=== PATIENT | female | born 1975 | race Caucasian/White ===

== ENCOUNTER 2017-05-31 13:30 | Emergency (ER) | payer SELFPAY ==
[2017-05-31 13:35] VITALS: BP 135/91; BMI 41.5
--- NOTE | 2017-05-31 14:13 | DR.GENAD ---
HPI - PCP Primary Care Physician: isaias SÁNCHEZ Comment HPI Comment: Cold symptoms x 4 days. Consists of cough which is both dry and productive. She has fever but no chills. She has body aches. Past hx. of Asthma managed with Albuterol (out of meds. for some time now). She is a smoker. - Complaint/Symptoms Chief Complaint:: patient stated she has been running a fever and havong body aches for 4 days. - Nurses notes reviewed Nurses Notes Review: Yes - Source History Provided: Patient - Mode of Arrival Mode of Arrival: Ambulatory - Timing Onset of Chief Complaint: 05/27/17 - Modifying Factors Worsens:: none Improves:: none PMH - PMH Past Medical History: Yes Past Medical History: Asthma, Migraines, Hypertension, Hypothyroidism Past Surgical History: Yes Surgical History: Cholecystectomy, Hysterectomy - Family History History of Family Medical Conditions: Yes Family Medical History: Diabetes Mellitus, [place], Hypertension - Social History Does patient currently use any type of tobacco product: Yes Have you used tobacco products in the last 12 months: Yes Type of Tobacco Use: Cigarettes How many years tobacco product used: 2 Does any household member use tobacco: No Do you use any recreational Drugs:: No Lives With: Family Lives Where: Home - infectious screening In the last 2 months have you had wt loss of >10#?: NO Have you had fever, night sweats or hemotysis?: No Have you traveled outside the country in the last 6 months?: No Isolation: Standard ROS - Review of Systems Constitutional: Fever, Other (myalgias) Eyes: No Symptoms Reported ENTM: No Symptoms Reported Respiratoy: Productive Cough, Non-Productive Cough Cardiovascular: No Symptoms Reported Gastrointestinal/Abdominal: No Symptoms Reported Genitourinary: No Symptoms Reported Neurological: No Symptoms Reported Musculoskeletal: No Symptoms Reported Integumentary: No Symptoms Reported Hematologic/Lymphatic: No Symptoms Reported Endocrine: No Symptoms Reported Psychiatric: No Symptoms Reported PE - Vital Signs Vitals: Temperature 98.4 F Pulse Rate 100 Respiratory Rate 16 Blood Pressure [Right Arm] 168/102 Blood Pressure 135/91 O2 Sat by Pulse Oximetry 98 - General Limitations: No Limitations General Appearance: Alert, In No Apparent Distress - Head Head Exam: Normal Inspection - Eyes Eye exam: Normal Appearance - ENT ENT Exam: Normal Exam - Neck Neck Exam: Normal Inspection - Chest Chest Inspection: Normal Inspection - Respiratory Respiratory Exam: Normal Lung Sounds Bilat - Cardiovascular Cardiovascular Exam: Regular Rate, Normal Rhythm - Abdominal Exam Abdominal Exam: Normal Inspection, Normal Bowel Sounds, Soft - Extremities Extremities Exam: Normal Inspection - Back Back Exam: Normal Inspection - Neurologic Neurological Exam: Alert, Oriented X3, CN II-XII Intact - Psychiatric Psychiatric Exam: Normal Affect, Normal Mood - Skin Skin Exam: Warm, Dry, Intact, Normal Color ROR - Labs Reviewed Laboratory: Influenza Type A (PCR) Negative (NEGATIVE) 05/31/17 14:07 Influenza Type B (PCR) Negative (NEGATIVE) 05/31/17 14:07 - XRAY XRAY Interpreted by: Radiologist (early LLL infiltrate) - Diagnosis Discharge Problem: Pneumonia - Discharge Plan Disposition: 01 HOME, SELF-CARE Condition: Stable - Follow ups/Referrals Follow ups/Referrals: NFD,None [Primary Care Provider] - 3 days - Instructions
--- NOTE | 2017-05-31 14:29 | RAD ---
Examination: Chest, PA and lateral views History: Cough and congestion Comparison reference: September 15, 2014 Findings: Continued normal heart size. The lungs are moderately underinflated, limiting evaluation of the bases. However, on the PA view, there is suggestion of a small parenchymal density in the retroc ardiac left base, not previously seen. There is no pleural fluid, or pneumothorax. Impression: Suspect infiltrate left lower lung. See above. Reported By:
[2017-05-31] MEDS ORDERED: CEFTIN PO ONE ×2 (15:00→15:10)
== END 2017-05-31 15:22 | disposition home or self-care (01) ==
LOC: ER 13:46
DX: J18.9 Pneumonia, unspecified organism (principal)
CPT/HCPCS: 71020; 87502; 99282

== ENCOUNTER 2017-07-23 11:11 | Emergency (ER) | payer SELFPAY ==
[2017-07-23 11:24] VITALS: BP 131/96; BMI 41.5
--- NOTE | 2017-07-23 11:32 | DR.GENAD ---
HPI - PCP Primary Care Physician: NFD - Complaint/Symptoms Chief Complaint Doctors Comments: Patient stopped suddendly when trying to avoid hitting deers on last night now she has severe thoracic and lumbar pain. She states that she has scoliosis. Patient also states that she has been treated for pnaumonia within the last month Chief Complaint:: PT. C/O NECK PAIN THAT BEGAN LAST NIGHT. PT. DESCRIBES THE PAIN TIGHTNESS. PT. ALSO C/O BACK PAIN WHICH IS CHRONIC IN NATURE. PT. SAYS SHE SLAMMED ON BREAKS TO MISS SOME DEER LAST NIGHT AND AFTER THAT IS WHEN HER NECK STARTED HURTING. - Source History Provided: Patient - Mode of Arrival Mode of Arrival: Ambulatory - Timing Onset of Chief Complaint: 07/22/17 PMH - PMH Past Medical History: Yes Past Medical History: Asthma, Migraines, Hypertension, Hypothyroidism, Seizures Past Surgical History: Yes Surgical History: Cholecystectomy, Hysterectomy - Family History History of Family Medical Conditions: Yes Family Medical History: Diabetes Mellitus, [place], Hypertension - Social History Does patient currently use any type of tobacco product: Yes Have you used tobacco products in the last 12 months: Yes Type of Tobacco Use: Cigarettes Does any household member use tobacco: No Alcohol Use: None Do you use any recreational Drugs:: No Lives With: Spouse Lives Where: Home - infectious screening In the last 2 months have you had wt loss of >10#?: NO Have you had fever, night sweats or hemotysis?: No Have you traveled outside the country in the last 6 months?: No Isolation: Standard ROS - Review of Systems Eyes: No Symptoms Reported ENTM: No Symptoms Reported Respiratoy: No Symptoms Reported Cardiovascular: No Symptoms Reported Gastrointestinal/Abdominal: No Symptoms Reported Genitourinary: No Symptoms Reported Neurological: No Symptoms Reported Musculoskeletal: Muscle Pain, Muscle Stiffness (back), Neck (pain with rotation) Integumentary: No Symptoms Reported Hematologic/Lymphatic: No Symptoms Reported Endocrine: No Symptoms Reported Psychiatric: No Symptoms Reported All Other Systems: Reviewed and Negative PE - Vital Signs Vitals: Temperature 97.2 F Pulse Rate 82 Respiratory Rate 17 Blood Pressure [Right Arm] 168/102 Blood Pressure 131/96 O2 Sat by Pulse Oximetry 96 - General General Appearance: Alert, In No Apparent Distress - Head Head Exam: Normal Inspection, Atraumatic - Eyes Eye exam: Normal Appearance, PERRL, EOMI - ENT ENT Exam: Normal Exam External Ear Exam: Normal External Inspection TM/Canal Exam: Bilateral Normal Nose Exam: Normal Nose Exam Mouth Exam: Normal Inspection Throat Exam: Normal Inspection - Neck Neck Exam: Normal Inspection, Full ROM - Chest Chest Inspection: Normal Inspection, Symmetric Chest Wall Rise - Respiratory Respiratory Exam: Normal Lung Sounds Bilat Respiratory Exam: Bilateral Clear to Auscultation - Cardiovascular Cardiovascular Exam: Regular Rate, Normal Rhythm - Abdominal Exam Abdominal Exam: Normal Inspection, Normal Bowel Sounds Abdominal Tenderness: negative: RUQ, RLQ, LUQ, LLQ, Epigastrium, Suprapubic, Diffuse, Mild, Moderate, Severe, Other - Extremities Extremities Exam: Normal Inspection - Back Back Exam: Tenderness (low lumbar (L3-4)) - Neurologic Neurological Exam: Alert, Oriented X3, CN II-XII Intact - Psychiatric Psychiatric Exam: Normal Affect, Normal Mood - Skin Skin Exam: Warm, Dry, Intact ROR - XRAY XRAY Interpreted by: Self (Chest sporatic infiltrated, chest with increased thoracic curvature,) - Diagnosis Discharge Problem: Muscle spasm, Back muscle spasm - Discharge Plan Condition: Stable Prescriptions: Cyclobenzaprine HCl [FLEXERIL 10 MG *] 10 mg PO TID #30 tab Ibuprofen [Motrin Tab 800 mg] 800 mg PO Q8H PRN #30 tab PRN Reason: Pain/Inflammation - Follow ups/Referrals Follow ups/Referrals: NFD,None [Primary Care Provider] - 3 days - Instructions
[2017-07-23] MEDS ORDERED: VALIUM INJ IM ONE (11:33)
--- NOTE | 2017-07-23 15:33 | RAD ---
Examination: Thoracic spine, AP and lateral views History: Pain Findings: No evidence for fracture, bone destruction, subluxation or paraspinal soft tissue mass. Ped icles are intact. Small marginal osteophytes are present. Impression: Degenerative thoracic spondylosis. Reported By:
--- NOTE | 2017-07-23 16:33 | RAD ---
Examination: Lumbar spine, AP and lateral views History: Back pain, chronic Findings: There is straightening of the normal lumbar lordosis. Alignment of vertebrae is normal. No fracture is seen. There is narrowing of the L5-S1 interspace. Pedicles and sacroiliac joints are norm al. Impression: No fracture identified. Degenerative disc changes lumbosacral interspace. Alteration in l umbar curvature may reflect back pain or muscle spasm. Reported By:
== END 2017-07-23 14:46 | disposition home or self-care (01) ==
LOC: ER 11:18
DX: M62.838 Other muscle spasm (principal); M54.2 Cervicalgia; M54.89 Other dorsalgia
CPT/HCPCS: 72072; 72100; 96372; 99282; 99283; 99284; J3360